=== PATIENT | female | born 1965 | race Caucasian/White ===

== ENCOUNTER 2016-11-08 02:08 | Observation (INO) | payer MEDICAID ==
--- NOTE | 2016-11-08 02:20 | C.PDOC ---
History Of Present Illness A 51 year old female presents to the ED c/o feeling palpitations today. Patient notes being treated for UTI and felt her heart racing. Patient denies chest pain , SOB, fever, chills, trauma, or any other complaints. Time Seen by Provider: 11/08/16 02:20 Chief Complaint (Nursing): Chest Pain History Per: Patient History/Exam Limitations: no limitations Onset/Duration Of Symptoms: Hrs Current Symptoms Are (Timing): Still Present Context: Other Severity: Mild Pain Scale Rating Of: 3 Quality: Dull, Aching Alleviating Factors: None Recent travel outside of the [place]: No Additional History Per: Patient Past Medical History Reviewed: Historical Data, Nursing Documentation, Vital Signs Vital Signs: Last Vital Signs Temp 97.7 F 11/08/16 04:42 Pulse 72 11/08/16 03:37 Resp 13 11/08/16 03:37 BP 147/82 11/08/16 03:37 Pulse Ox 99 11/08/16 03:37 - Medical History PMH: Gastrointestinal Ulcer, HTN, Hypercholesterolemia, Hyperlipidemia, Hyperthyroidism, Hypothyroidism Denies: Chronic Kidney Disease Surgical History: Endoscopy - [facility] Procedures INFLUENZA VACCINATION (09/07/14) VACCINATION NEC (09/07/14) Family History: States: Unknown Family Hx - Social History Hx Tobacco Use: No Hx Alcohol Use: No Hx Substance Use: No - Immunization History Hx Tetanus Toxoid Vaccination: No Hx Influenza Vaccination: No Hx Pneumococcal Vaccination: No Review Of Systems Except As Marked, All Systems Reviewed And Found Negative. Constitutional: Negative for: Fever, Chills, Other (Trauma) Cardiovascular: Positive for: Palpitations. Negative for: Chest Pain Respiratory: Negative for: Shortness of Breath Gastrointestinal: Positive for: Abdominal Pain. Negative for: Nausea, Vomiting Genitourinary: Negative for: Hematuria Musculoskeletal: Negative for: Neck Pain Skin: Negative for: Rash Neurological: Negative for: Weakness Psych: Positive for: Anxiety Physical Exam - Physical Exam Appears: Non-toxic, No Acute Distress Skin: Warm, Dry Head: Atraumatic, Normacephalic Eye(s): bilateral: Normal Inspection Oral Mucosa: Moist Neck: Supple Chest: Symmetrical Cardiovascular: Rhythm Regular Respiratory: No Rales, No Rhonchi, No Wheezing Gastrointestinal/Abdominal: Soft, Tenderness (Mild epigastric tenderness), No Guarding, No Rebound Back: Normal Inspection Extremity: Normal ROM Extremity: Bilateral: Atraumatic, Normal Color And Temperature Neurological/Psych: Oriented x3, Normal Speech, Normal Cognition, No Other (No focal deficit) Gait: Steady ED Course And Treatment - Laboratory Results Result Diagrams: 11/08/16 03:00 11/08/16 03:00 ECG: Interpreted By Me, Viewed By Me ECG Rhythm: Sinus Rhythm (84), Nonspecific Changes Pulse Ox Interpretation: Normal - Radiology CXR: Interpreted by Me, Viewed By Me CXR Interpretation: No: Infiltrates, Fracture, Pnemothorax Disposition Discussed With Dr.: Wiley Cortez Comment: accepted the pt onhis service and took over hte care at 5:24AM Counseled Patient/Family Regarding: Studies Performed, Diagnosis, Need For Followup - Disposition Disposition: HOSPITALIZED Disposition Time: 02:20 Condition: FAIR - POA Present On Arrival: Poor Glycemic Control - Clinical Impression Clinical Impression: Chest pain, Abdominal pain, Palpitation - Scribe Statement The provider has reviewed the documentation as recorded by the Scribe Tracie ford All medical record entries made by the Scribe were at my direction and personally dictated by me. I have reviewed the chart and agree that the record accurately reflects my personal performance of the history, physical exam, medical decision making, and the department course for this patient. I have also personally directed, reviewed, and agree with the discharge instructions and disposition. Decision To Admit - Pt Status Changed To: Hospital Disposition Of: Observation - . Bed Request Type: Telemetry Admitting Physician: Wiley Cortez Patient Diagnosis: Chest pain, Abdominal pain, Palpitation
[2016-11-08 02:26] VITALS: BMI 28.4
[2016-11-08] MEDS ORDERED: Sodium Chloride 0.9% 1,000 ML IV ONE (02:30)
[2016-11-08 03:04] LABS: BASO # 0.1 K/uL (0.0-0.2); BASO % 0.8 % (0.0-2.0); EOS # 0.3 K/uL (0.0-0.7); HEMATOCRIT 37.4 % (34.0-47.0); LYMPH # 2.8 K/uL (1.0-4.3); LYMPH % 43.6 % (20.0-40.0); MEAN CELL VOLUME 81.6 fL (81.0-99.0); MEAN CORPUSCULAR HEMOGLOBIN 26.9 pg (27.0-31.0); MEAN CORPUSCULAR HGB CONC 32.9 g/dL (33.0-37.0); MONO # 0.5 K/uL (0.0-0.8); MONO % 8.5 % (0.0-10.0); NRBC % 0.1 % (0.0-2.0); RED CELL DISTRIBUTION WIDTH 12.7 % (11.5-14.5); WHITE BLOOD COUNT 6.4 K/uL (4.8-10.8)
[2016-11-08 03:21] LABS: CHLORIDE 99 mmol/L (98-107); POTASSIUM 3.8 mmol/L (3.6-5.2); SODIUM 137 mmol/L (132-148)
[2016-11-08 03:22] LABS: INR 1.1
[2016-11-08 03:23] LABS: BILIRUBIN,TOTAL 0.5 mg/dL (0.2-1.3); GFR AFRICAN-AMERICAN > 60
[2016-11-08 03:24] LABS: ALB/GLOB RATIO 1.4 (1.0-2.1); ALKALINE PHOSPHATASE 68 U/L (38-126); ALT/SGPT 31 U/L (9-52); AST/SGOT 21 U/L (14-36); BLOOD UREA NITROGEN 9 mg/dL (7-17); CALCIUM 8.5 mg/dl (8.6-10.4); CARBON DIOXIDE 27 mmol/L (22-30); GLUCOSE,RANDOM 160 mg/dL (65-105); TOTAL PROTEIN 6.6 g/dL (6.3-8.3)
[2016-11-08 03:46] LABS: RBC URINE 5 /hpf (0-3); URINE BACTERIA FEW (<OCC); URINE BILIRUBIN NEGATIVE (NEGATIVE); URINE BLOOD 1+ (NEGATIVE); URINE COLOR Amber (YELLOW); URINE GLUCOSE (UA) 2+ mg/dL (Normal); URINE KETONE NEGATIVE (NEGATIVE); URINE LEUKOCYTE ESTERASE NEG Leu/uL (Negative); URINE PROTEIN NEGATIVE (NEGATIVE); WBC URINE 1 /hpf (0-5)
[2016-11-08] MEDS ORDERED: Enoxaparin 40 mg Syringe SC ONE (05:52)
[2016-11-08] MEDS ORDERED: Enoxaparin 40 mg Syringe ONE (06:15)
--- NOTE | 2016-11-08 09:06 | RAD ---
PROCEDURE: CHEST RADIOGRAPH, 1 VIEW HISTORY: chest pain COMPARISON: None available. FINDINGS: LUNGS: Clear. PLEURA: No pneumothorax or pleural fluid seen. CARDIOVASCULAR: Normal. OSSEOUS STRUCTURES: No significant abnormalities. VISUALIZED UPPER ABDOMEN: Normal. OTHER FINDINGS: None. IMPRESSION: No active disease.
[2016-11-08] MEDS ORDERED: VITAMIN C PO SCH (10:00)
[2016-11-08] MEDS ORDERED: VITAMIN B COMPLEX PO SCH (10:00)
[2016-11-08] MEDS: Vitamin B Complex/Vitamin C Tab PO SCH (11:00)
[2016-11-08] MEDS: methIMAzole 5 MG TAB PO SCH (11:00)
--- NOTE | 2016-11-08 11:53 | CP.PCM.CON ---
History of Present Illness - History of Present Illness History of Present Illness: 51-year-old lady with prior history of hypertension, diabetes, and mixed hyperlipidemia and questionable hypothyroidism. She was admitted through the emergency department with dysuria, felt her heart is racing. There was no arrhythmia on the monitor and early in 2014, it is reported that she had a stress test at [facility] with negative for ischemia results, this time no chest pain or shortness of breath no further palpitation and no loss of consciousness. No fever or high white count, mild dehydration. Follow- up with thyroid-stimulating hormone and echocardiogram. Labs are negative for AK. Review of Systems - Review of Systems Systems not reviewed;Unavailable: Acuity of Condition - Constitutional Constitutional: Anorexia, Weakness - EENT Eyes: absent: Discharge Ears: absent: Ear Discharge Nose/Mouth/Throat: absent: Epistaxis - Cardiovascular Cardiovascular: Palpitations. absent: Acrocyanosis, Chest Pain, Diaphoresis, Dyspnea, Leg Edema, Syncope - Respiratory Respiratory: absent: Cough, Hemoptysis, Dyspnea on Exertion - Gastrointestinal Gastrointestinal: absent: Abdominal Pain, Diarrhea, Dyspepsia, Hematochezia, Vomiting - Genitourinary Genitourinary: Change in Urinary Stream, Dysuria Past Patient History - Tetanus Immunizations Tetanus Immunization: Unknown - Past Medical History & Family History Past Medical History?: Yes - Past Social History Smoking Status: Never Smoked - CARDIAC Hx Hypercholesterolemia: Yes Hx Hypertension: Yes - PULMONARY Hx Respiratory Disorders: No - NEUROLOGICAL Hx Neurological Disorder: Yes Hx Dizziness: Yes - HEENT Hx HEENT Problems: No - RENAL Hx Chronic Kidney Disease: No - ENDOCRINE/METABOLIC Hx Hyperthyroidism: Yes Hx Hypothyroidism: Yes - HEMATOLOGICAL/ONCOLOGICAL Hx Blood Disorders: No - INTEGUMENTARY Hx Dermatological Problems: No - MUSCULOSKELETAL/RHEUMATOLOGICAL Hx Falls: Yes - GASTROINTESTINAL Hx Gastrointestinal Disorders: Yes (COLITIS,HERNIORHAPPHY,HEMORRHOIDS WITH SX) Hx Colitis: Yes Hx Gastroesophageal Reflux: Yes Hx Hemorrhoids: Yes - GENITOURINARY/GYNECOLOGICAL Hx Genitourinary Disorders: Yes (HYSTERECTOMY,MISCARRIAGE X 1) Other/Comment: ovarian cyst - PSYCHIATRIC Hx Substance Use: No - SURGICAL HISTORY Hx Section: Yes Hx Herniorrhaphy: Yes Hx Hysterectomy: Yes Other/Comment: Abdominal cyst removal - ANESTHESIA Hx Anesthesia: Yes Hx Anesthesia Reactions: No Hx Malignant Hyperthermia: No Meds Allergies/Adverse Reactions: Allergies Allergy/AdvReac Type Severity Reaction Status Date / Time nitrofurantoin Allergy Intermediate RASH Verified 11/08/16 05:35 [From Macrobid] sulfamethoxazole Allergy Intermediate ITCHING Verified 04/20/16 21:24 [From Bactrim] trimethoprim [From Bactrim] Allergy Intermediate ITCHING Verified 04/20/16 21:24 - Medications Medications: Current Medications Aspirin (Ecotrin) 81 mg PO DAILY [facility] Last Admin: 11/08/16 10:43 Dose: Not Given Atenolol (Tenormin) 25 mg PO DAILY [facility] Last Admin: 11/08/16 11:00 Dose: 25 mg Famotidine (Pepcid) 20 mg PO DAILY [facility] Last Admin: 11/08/16 11:00 Dose: 20 mg Glimepiride (Amaryl) 4 mg PO DAILY [facility] Last Admin: 11/08/16 11:00 Dose: 4 mg Lisinopril (Zestril) 10 mg PO DAILY [facility] Last Admin: 11/08/16 11:00 Dose: 10 mg Metformin HCl (Glucophage) 1,000 mg PO BIDBS [facility] Last Admin: 11/08/16 11:00 Dose: 1,000 mg Methimazole (Tapazole) 5 mg PO DAILY [facility] Last Admin: 11/08/16 11:00 Dose: 5 mg Ondansetron HCl (Zofran Odt) 8 mg PO TID PRN PRN Reason: Nausea/Vomiting Tramadol HCl (Ultram) 50 mg PO TID [facility] Last Admin: 11/08/16 11:00 Dose: 50 mg Vitamin B Complex/Vitamin C (Berocca) 1 tab PO DAILY [facility] Last Admin: 11/08/16 11:00 Dose: 1 tab Physical Exam - Constitutional Appears: Non-toxic - Head Exam Head Exam: ATRAUMATIC - Eye Exam Eye Exam: EOMI - ENT Exam ENT Exam: Mucous Membranes Moist - Neck Exam Neck exam: Negative for: Lymphadenopathy, Thyromegaly - Respiratory Exam Respiratory Exam: Clear to Auscultation Bilateral. absent: Rales - Cardiovascular Exam Cardiovascular Exam: REGULAR RHYTHM, Systolic Murmur. absent: Gallop - GI/Abdominal Exam GI & Abdominal Exam: Normal Bowel Sounds. absent: Organomegaly - Rectal Exam Rectal Exam: Deferred - Extremities Exam Extremities exam: Positive for: normal capillary refill. Negative for: calf tenderness - Neurological Exam Neurological exam: Alert, Oriented x3 - Psychiatric Exam Psychiatric exam: Anxious - Skin Skin Exam: Dry Results - Vital Signs Recent Vital Signs: Last Vital Signs Temp 98.2 F 11/08/16 08:30 Pulse 74 11/08/16 08:30 Resp 12 11/08/16 08:30 BP 124/77 11/08/16 08:30 Pulse Ox 95 11/08/16 08:30 - Labs Result Diagrams: 11/08/16 03:00 11/08/16 03:00 Labs: Laboratory Results - last 24 hr 11/08/16 11/08/16 11/08/16 05:33 08:32 10:56 POC Glucose (mg/dL) 185 H 176 H Total Creatine Kinase 66 CK-MB (Mass) 0.30 Troponin I, Quant < 0.0120 Assessment & Plan (1) Palpitation Status: Acute Comment: Evaluate thyroid function and echocardiogram (2) Diabetes mellitus Status: Chronic (3) HTN (hypertension) Status: Chronic (4) Hyperlipidemia Status: Chronic
[2016-11-08] MEDS ORDERED: cefTRIAXone IV 1 gm in Dextros 50 ML IVPB ONE (15:14)
--- NOTE | 2016-11-08 23:00 | CP.PCM.HP ---
History of Present Illness - History of Present Illness History of Present Illness: fernandaif complain Lower abdominal pain chest pain HPI 51-year-old lady with prior history of hypertension, diabetes, and mixed hyperlipidemia and questionable hypothyroidism. She was admitted through the emergency department with dysuria, felt her heart is racing. There was no arrhythmia on the monitor and early in 2014, it is reported that she had a stress test at [facility] with negative for ischemia results, this time no chest pain or shortness of breath no further palpitation and no loss of consciousness. No fever or high white count, mild dehydration. Follow- up with thyroid-stimulating hormone and echocardiogram. Labs are negative for ND. Present on Admission - Present on Admission Any Indicators Present on Admission: No Review of Systems - Constitutional Constitutional: Lethargy, Malaise, Weakness - EENT Eyes: absent: As Per HPI, Blind Spots, Blurred Vision, Change in Vision, Decreased Night Vision, Diplopia, Discharge, Dry Eye, Exophthalmos, Floaters, Irritation, Itchy Eyes, Loss of Peripheral Vision, Pain, Photophobia, Requires Corrective Lenses, Sees Flashes, Spots in Vision, Tunnel Vision, Other Visual Disturbances, Loss of Vision, Other Nose/Mouth/Throat: absent: As Per HPI, Epistaxis, Nasal Congestion, Nasal Discharge, Nasal Obstruction, Nasal Trauma, Nose Pain, Post Nasal Drip, Sinus Pain, Sinus Pressure, Bleeding Gums, Change in Voice, Dental Pain, Dry Mouth, Dysphagia, Halitosis, Hoarsness, Lip Swelling, Mouth Lesions, Mouth Pain, Odynophagia, Sore Throat, Throat Swelling, Tongue Swelling, Facial Pain, Neck Pain, Neck Mass, Other - Cardiovascular Cardiovascular: Chest Pain, Palpitations - Gastrointestinal Gastrointestinal: absent: As Per HPI, Abdominal Pain, Belching, Bloating, Change in Bowel Habits, Change in Stool Character, Coffee Ground Emesis, Constipation, Cramping, Diarrhea, Dyspepsia, Dysphagia, Early Satiety, Excessive Flatus, Fecal Incontinence, Heartburn, Hematemesis, Hematochezia, Loose Stools, Melena, Nausea, Odynophagia, Temesmus, Vomiting, Other - Genitourinary Genitourinary: Urinary Frequency - Musculoskeletal Musculoskeletal: Back Pain, Muscle Weakness, Myalgias Past Patient History - Tetanus Immunizations Tetanus Immunization: Unknown - Past Medical History & Family History Past Medical History?: Yes - Past Social History Smoking Status: Never Smoked - CARDIAC Hx Hypercholesterolemia: Yes Hx Hypertension: Yes - PULMONARY Hx Respiratory Disorders: No - NEUROLOGICAL Hx Neurological Disorder: Yes Hx Dizziness: Yes - HEENT Hx HEENT Problems: No - RENAL Hx Chronic Kidney Disease: No - ENDOCRINE/METABOLIC Hx Hyperthyroidism: Yes Hx Hypothyroidism: Yes - HEMATOLOGICAL/ONCOLOGICAL Hx Blood Disorders: No - INTEGUMENTARY Hx Dermatological Problems: No - MUSCULOSKELETAL/RHEUMATOLOGICAL Hx Falls: No - GASTROINTESTINAL Hx Gastrointestinal Disorders: Yes (COLITIS,HERNIORHAPPHY,HEMORRHOIDS WITH SX) Hx Colitis: Yes Hx Gastroesophageal Reflux: Yes Hx Hemorrhoids: Yes - GENITOURINARY/GYNECOLOGICAL Hx Genitourinary Disorders: Yes (HYSTERECTOMY,MISCARRIAGE X 1) Other/Comment: ovarian cyst - PSYCHIATRIC Hx Substance Use: No - SURGICAL HISTORY Hx Section: Yes Hx Herniorrhaphy: Yes Hx Hysterectomy: Yes Other/Comment: Abdominal cyst removal - ANESTHESIA Hx Anesthesia: Yes Hx Anesthesia Reactions: No Hx Malignant Hyperthermia: No Meds Home Medications: Home Medication List Medication Instructions Recorded Confirmed Type Cephalexin [Keflex] 500 mg PO BID 4 Days 11/10/16 Rx Gabapentin [Neurontin] 100 mg PO BID #60 cap 11/10/16 Rx Allergies/Adverse Reactions: Allergies Allergy/AdvReac Type Severity Reaction Status Date / Time nitrofurantoin Allergy Intermediate RASH Verified 11/08/16 05:35 [From Macrobid] sulfamethoxazole Allergy Intermediate ITCHING Verified 04/20/16 21:24 [From Bactrim] trimethoprim [From Bactrim] Allergy Intermediate ITCHING Verified 04/20/16 21:24 Physical Exam - Constitutional Additional comments: elderly female in moderate pain - Head Exam Head Exam: ATRAUMATIC, NORMAL INSPECTION, NORMOCEPHALIC - Eye Exam Eye Exam: EOMI, Normal appearance, PERRL Pupil Exam: NORMAL ACCOMODATION, PERRL - Respiratory Exam Respiratory Exam: Clear to Auscultation Bilateral, NORMAL BREATHING PATTERN - Cardiovascular Exam Cardiovascular Exam: REGULAR RHYTHM - GI/Abdominal Exam GI & Abdominal Exam: Normal Bowel Sounds, Soft. absent: Tenderness Results - Vital Signs Recent Vital Signs: Last Vital Signs Temp 97 F L 11/08/16 18:15 Pulse 76 11/08/16 18:15 Resp 20 11/08/16 18:15 BP 129/80 11/08/16 18:15 Pulse Ox 99 11/08/16 19:23 - Labs Result Diagrams: 11/10/16 10:42 11/10/16 10:42 Labs: Laboratory Results - last 24 hr 11/08/16 11/08/16 11/08/16 05:33 08:32 10:56 POC Glucose (mg/dL) 185 H 176 H Total Creatine Kinase 66 CK-MB (Mass) 0.30 Troponin I, Quant < 0.0120 TSH 3rd Generation 11/08/16 11/08/16 11/08/16 12:27 13:08 13:08 POC Glucose (mg/dL) 284 H Total Creatine Kinase 74 CK-MB (Mass) 0.49 Troponin I, Quant < 0.0120 TSH 3rd Generation 0.33 L 11/08/16 11/08/16 11/08/16 16:26 20:28 21:30 POC Glucose (mg/dL) 82 167 H Total Creatine Kinase 67 CK-MB (Mass) 0.32 Troponin I, Quant < 0.0120 TSH 3rd Generation Assessment & Plan (1) Abdominal pain Status: Resolved (2) Chest pain Status: Acute (3) Palpitation Status: Acute (4) Enteritis Status: Acute
--- NOTE | 2016-11-09 08:05 | CP.PCM.CON ---
<Isa Soto - Last Filed: 11/09/16 08:14> History of Present Illness - History of Present Illness History of Present Illness: Gastroenterology Fellow/PGY4 Consult Note 51 year old female with history of Hypertension, Hyperlipidemia, Diabetes, and Hyperthyroidism presenting with dysuria and heart racing. Patient describes urinary frequency and dysuria associated with chills and palpitations since last leading to ER presentation. Active treatment of UTI. She notes left upper abdomen pain radiating to back for the last four months. Admits to intermittent nausea and vomiting of solids leading to a 20-30 pound weight loss over the last year. Last food vomitus occurred on and has tolerated diet since this time. Denies heartburn, indigestion, diarrhea, constipation, melena, hematochezia, or hematemesis. Admits to use of Advil and Aleve four times a week for abdominal pain relief. She was admitted April 2016 for abdominal pain, dysuria, and hematuria with CT A/P showing no acute abnormalities. Prior EGD and colonoscopy one year ago endorsed to be normal. Family- denies stomach cancer, colon cancer Social- denies tobacco, alcohol, illicit drug use Surgery- hysterectomy Review of Systems - Review of Systems Review of Systems: A 12-point review of systems negative except for as above Past Patient History - Tetanus Immunizations Tetanus Immunization: Unknown - Past Medical History & Family History Past Medical History?: Yes - Past Social History Smoking Status: Never Smoked - CARDIAC Hx Hypercholesterolemia: Yes Hx Hypertension: Yes - PULMONARY Hx Respiratory Disorders: No - NEUROLOGICAL Hx Neurological Disorder: Yes Hx Dizziness: Yes - HEENT Hx HEENT Problems: No - RENAL Hx Chronic Kidney Disease: No - ENDOCRINE/METABOLIC Hx Hyperthyroidism: Yes Hx Hypothyroidism: Yes - HEMATOLOGICAL/ONCOLOGICAL Hx Blood Disorders: No - INTEGUMENTARY Hx Dermatological Problems: No - MUSCULOSKELETAL/RHEUMATOLOGICAL Hx Falls: No - GASTROINTESTINAL Hx Gastrointestinal Disorders: Yes (COLITIS,HERNIORHAPPHY,HEMORRHOIDS WITH SX) Hx Colitis: Yes Hx Gastroesophageal Reflux: Yes Hx Hemorrhoids: Yes - GENITOURINARY/GYNECOLOGICAL Hx Genitourinary Disorders: Yes (HYSTERECTOMY,MISCARRIAGE X 1) Other/Comment: ovarian cyst - PSYCHIATRIC Hx Substance Use: No - SURGICAL HISTORY Hx Section: Yes Hx Herniorrhaphy: Yes Hx Hysterectomy: Yes Other/Comment: Abdominal cyst removal - ANESTHESIA Hx Anesthesia: Yes Hx Anesthesia Reactions: No Hx Malignant Hyperthermia: No Meds Allergies/Adverse Reactions: Allergies Allergy/AdvReac Type Severity Reaction Status Date / Time nitrofurantoin Allergy Intermediate RASH Verified 11/08/16 05:35 [From Macrobid] sulfamethoxazole Allergy Intermediate ITCHING Verified 04/20/16 21:24 [From Bactrim] trimethoprim [From Bactrim] Allergy Intermediate ITCHING Verified 04/20/16 21:24 - Medications Medications: Current Medications Aspirin (Ecotrin) 81 mg PO DAILY [facility] Last Admin: 11/08/16 10:43 Dose: Not Given Atenolol (Tenormin) 25 mg PO DAILY [facility] Last Admin: 11/08/16 11:00 Dose: 25 mg Famotidine (Pepcid) 20 mg PO DAILY [facility] Last Admin: 11/08/16 11:00 Dose: 20 mg Glimepiride (Amaryl) 4 mg PO DAILY [facility] Last Admin: 11/08/16 11:00 Dose: 4 mg Ceftriaxone Sodium 1 gm/ (Sodium Chloride) 100 mls @ 100 mls/hr IVPB DAILY@ 1500 [facility] Last Admin: 11/08/16 15:16 Dose: 100 mls/hr Lisinopril (Zestril) 10 mg PO DAILY [facility] Last Admin: 11/08/16 11:00 Dose: 10 mg Metformin HCl (Glucophage) 1,000 mg PO BIDBS [facility] Last Admin: 11/08/16 16:38 Dose: Not Given Methimazole (Tapazole) 5 mg PO DAILY [facility] Last Admin: 11/08/16 11:00 Dose: 5 mg Ondansetron HCl (Zofran Odt) 8 mg PO TID PRN PRN Reason: Nausea/Vomiting Phenazopyridine HCl (Pyridium) 200 mg PO TIDPC [facility] Stop: 11/10/16 18:01 Last Admin: 11/08/16 18:06 Dose: 200 mg Tramadol HCl (Ultram) 50 mg PO TID [facility] Last Admin: 11/08/16 20:36 Dose: 50 mg Vitamin B Complex/Vitamin C (Berocca) 1 tab PO DAILY [facility] Last Admin: 11/08/16 11:00 Dose: 1 tab Physical Exam - Constitutional Appears: Non-toxic, No Acute Distress - Head Exam Head Exam: ATRAUMATIC, NORMOCEPHALIC - Eye Exam Eye Exam: EOMI, PERRL Pupil Exam: PERRL. absent: Miosis, Mydriatic - ENT Exam ENT Exam: Mucous Membranes Moist, Normal Oropharynx - Neck Exam Neck exam: Positive for: Full Rom, Normal Inspection - Respiratory Exam Respiratory Exam: Clear to Auscultation Bilateral. absent: Rales, Rhonchi, Wheezes - Cardiovascular Exam Cardiovascular Exam: RRR, +S1, +S2. absent: Gallop, Rubs - GI/Abdominal Exam GI & Abdominal Exam: Normal Bowel Sounds, Soft, Tenderness. absent: Distended, Firm, Guarding, Organomegaly, Rebound, Rigid Additional comments: LUQ tenderness - Extremities Exam Extremities exam: Positive for: full ROM. Negative for: pedal edema - Neurological Exam Neurological exam: Alert - Psychiatric Exam Psychiatric exam: Normal Affect, Normal Mood - Skin Skin Exam: Dry, Intact, Normal Color, Warm Results - Vital Signs Recent Vital Signs: Last Vital Signs Temp 98.3 F 11/09/16 07:58 Pulse 86 11/09/16 07:58 Resp 19 11/09/16 07:58 BP 169/78 H 11/09/16 07:58 Pulse Ox 100 11/09/16 07:58 - Labs Result Diagrams: 11/08/16 03:00 11/08/16 03:00 Labs: Laboratory Results - last 24 hr 11/08/16 11/08/16 11/08/16 08:32 10:56 12:27 POC Glucose (mg/dL) 176 H 284 H Total Creatine Kinase 66 CK-MB (Mass) 0.30 Troponin I, Quant < 0.0120 TSH 3rd Generation 11/08/16 11/08/16 11/08/16 13:08 13:08 16:26 POC Glucose (mg/dL) 82 Total Creatine Kinase 74 CK-MB (Mass) 0.49 Troponin I, Quant < 0.0120 TSH 3rd Generation 0.33 L 11/08/16 11/08/16 11/09/16 20:28 21:30 06:09 POC Glucose (mg/dL) 167 H 123 H Total Creatine Kinase 67 CK-MB (Mass) 0.32 Troponin I, Quant < 0.0120 TSH 3rd Generation Assessment & Plan - Assessment and Plan (Free Text) Assessment: 51 year old female with history of Hypertension, Hyperlipidemia, Diabetes, and Hyperthyroidism presenting with dysuria and palpitations. GI consultation for abdominal pain. Prior EGD and colonoscopy one year ago endorsed to be normal. Plan: DDx: gastritis, PUD, gastroenteritis, constipation >ordered pantoprazole >order CT A/P PO contrast to evaluate for visceral pathology >CT A/P 04/2016-diverticulosis, constipation >UTI: on Ceftriaxone >endorsed EGD/colonoscopy 2015 >obtain records from [facility] [place] >cardiology following- ECHO, follow recommendations >further recommendations based on clinical course <Gregorio Elizabeth - Last Filed: 11/09/16 08:50> Meds - Medications Medications: Current Medications Aspirin (Ecotrin) 81 mg PO DAILY [facility] Last Admin: 11/08/16 10:43 Dose: Not Given Atenolol (Tenormin) 25 mg PO DAILY [facility] Last Admin: 11/08/16 11:00 Dose: 25 mg Glimepiride (Amaryl) 4 mg PO DAILY [facility] Last Admin: 11/08/16 11:00 Dose: 4 mg Ceftriaxone Sodium 1 gm/ (Sodium Chloride) 100 mls @ 100 mls/hr IVPB DAILY@ 1500 [facility] Last Admin: 11/08/16 15:16 Dose: 100 mls/hr Lisinopril (Zestril) 10 mg PO DAILY [facility] Last Admin: 11/08/16 11:00 Dose: 10 mg Metformin HCl (Glucophage) 1,000 mg PO BIDBS [facility] Last Admin: 11/09/16 08:34 Dose: 1,000 mg Methimazole (Tapazole) 5 mg PO DAILY [facility] Last Admin: 11/08/16 11:00 Dose: 5 mg Ondansetron HCl (Zofran Odt) 8 mg PO TID PRN PRN Reason: Nausea/Vomiting Pantoprazole Sodium (Protonix Ec Tab) 40 mg PO ACB [facility] Phenazopyridine HCl (Pyridium) 200 mg PO TIDPC [facility] Stop: 11/10/16 18:01 Last Admin: 11/09/16 08:34 Dose: 200 mg Tramadol HCl (Ultram) 50 mg PO TID [facility] Last Admin: 11/08/16 20:36 Dose: 50 mg Vitamin B Complex/Vitamin C (Berocca) 1 tab PO DAILY [facility] Last Admin: 11/08/16 11:00 Dose: 1 tab Results - Vital Signs Recent Vital Signs: Last Vital Signs Temp 98.3 F 11/09/16 07:58 Pulse 86 11/09/16 07:58 Resp 19 11/09/16 07:58 BP 169/78 H 11/09/16 07:58 Pulse Ox 100 11/09/16 07:58 - Labs Result Diagrams: 11/08/16 03:00 11/08/16 03:00 Labs: Laboratory Results - last 24 hr 11/08/16 11/08/16 11/08/16 08:32 10:56 12:27 POC Glucose (mg/dL) 176 H 284 H Total Creatine Kinase 66 CK-MB (Mass) 0.30 Troponin I, Quant < 0.0120 TSH 3rd Generation Hepatitis A IgM Ab Hep Bs Antigen Hep B Core IgM Ab Hepatitis C Antibody 11/08/16 11/08/16 11/08/16 13:08 13:08 16:26 POC Glucose (mg/dL) 82 Total Creatine Kinase 74 CK-MB (Mass) 0.49 Troponin I, Quant < 0.0120 TSH 3rd Generation 0.33 L Hepatitis A IgM Ab Hep Bs Antigen Hep B Core IgM Ab Hepatitis C Antibody 11/08/16 11/08/16 11/09/16 20:28 21:30 06:09 POC Glucose (mg/dL) 167 H 123 H Total Creatine Kinase 67 CK-MB (Mass) 0.32 Troponin I, Quant < 0.0120 TSH 3rd Generation Hepatitis A IgM Ab Hep Bs Antigen Hep B Core IgM Ab Hepatitis C Antibody 11/09/16 06:28 POC Glucose (mg/dL) Total Creatine Kinase CK-MB (Mass) Troponin I, Quant TSH 3rd Generation Hepatitis A IgM Ab Negative Hep Bs Antigen Negative Hep B Core IgM Ab Negative Hepatitis C Antibody Negative Attending/Attestation - Attestation I have personally seen and examined this patient.: Yes I have fully participated in the care of the patient.: Yes I have reviewed all pertinent clinical information: Yes Notes (Text): 11/09/16 08:41 I have seen and examined patient with GI fellow. Agree with above documentation with the following additions. In brief, this is a 51 year old female with history of DM, HTN, hyperthyroidism who presented to hospital with complaint of dysuria and palpitations. GI consulted for evaluation of abdominal pain which has been present for the past 4 months. She describes a progressive LUQ pain, 5/10 intensity which is typically worse post prandial and intermittently radiates to back. She also endorses intermittent nausea and non- bloody emesis. She is typically constipated and has a bowel movement every other day. She admits to NSAID use for pain relief 4-5 times per week and claims to have occassional dark stool. She also endorses a weight loss of nearly 20 pounds over the past one year. She had an EGD/colonoscopy 1 year ago at outside facility which was normal as per patient. DM / HTN Hyperthyroidism Abdominal pain, constipation. CT imaging from April 2016 reviewed by me, showing no acute GI pathology UTI - Diet as tolerated - Continue with antibiotic therapy, awaiting urine culture results - Continue with PPI therapy - Given ongoing weight loss and abdominal pain, would repeat CT imaging of abdomen/pelvis for further evaluation - Obtain prior endoscopic reports - Will continue to monitor patient clinical course
[2016-11-09] MEDS: methIMAzole 5 MG TAB PO SCH (09:12)
[2016-11-09] MEDS: Pantoprazole 40 mg EC Tab PO SCH (09:13)
[2016-11-09] MEDS: Vitamin B Complex/Vitamin C Tab PO SCH (09:15)
[2016-11-09] MEDS ORDERED: Iohexol 240 (50 ml) PO ONE ×2 (10:45→11:00)
--- NOTE | 2016-11-09 11:41 | CP.PCM.PN ---
Subjective - Date & Time of Evaluation Date of Evaluation: 11/09/16 Time of Evaluation: 13:00 - Subjective Subjective: Echo normal left ventricular contractility, no pericardial disease and no aortic stenosis. Unlikely arrhythmia. Negative blood culture negative enzymes for WI. TSH is mildly decreased suggest hyperthyroidism, follow-up with GI workup Objective - Vital Signs/Intake and Output Vital Signs (last 24 hours): Temp Pulse Resp BP Pulse Ox 98.3 F 80 19 153/89 H 100 11/09/16 07:58 11/09/16 09:10 11/09/16 07:58 11/09/16 09:10 11/09/16 07:58 - Medications Medications: Current Medications Acetaminophen (Tylenol 325mg Tab) 650 mg PO Q6 PRN PRN Reason: Headache Aspirin (Ecotrin) 81 mg PO HS [facility] Atenolol (Tenormin) 25 mg PO DAILY [facility] Last Admin: 11/09/16 09:15 Dose: 25 mg Gabapentin (Neurontin) 100 mg PO BID [facility] Glimepiride (Amaryl) 4 mg PO 2000 [facility] Ceftriaxone Sodium 1 gm/ (Sodium Chloride) 100 mls @ 100 mls/hr IVPB DAILY@ 1500 [facility] Last Admin: 11/08/16 15:16 Dose: 100 mls/hr Lisinopril (Zestril) 10 mg PO DAILY [facility] Last Admin: 11/09/16 09:15 Dose: 10 mg Metformin HCl (Glucophage) 1,000 mg PO BIDBS [facility] Last Admin: 11/09/16 08:34 Dose: 1,000 mg Methimazole (Tapazole) 5 mg PO DAILY [facility] Last Admin: 11/09/16 09:12 Dose: 5 mg Ondansetron HCl (Zofran Odt) 8 mg PO TID PRN PRN Reason: Nausea/Vomiting Pantoprazole Sodium (Protonix Ec Tab) 40 mg PO ACB [facility] Last Admin: 11/09/16 09:13 Dose: 40 mg Phenazopyridine HCl (Pyridium) 200 mg PO TIDPC [facility] Stop: 11/10/16 18:01 Last Admin: 11/09/16 08:34 Dose: 200 mg Tramadol HCl (Ultram) 50 mg PO TID [facility] Last Admin: 11/09/16 09:13 Dose: 50 mg Vitamin B Complex/Vitamin C (Berocca) 1 tab PO DAILY [facility] Last Admin: 11/09/16 09:15 Dose: 1 tab - Labs Labs: PT 12.5 SECONDS (9.7-12.2) H 11/08/16 03:00 INR 1.1 11/08/16 03:00 APTT 29 SECONDS (21-34) 11/08/16 03:00 - Constitutional Appears: Non-toxic - Head Exam Head Exam: ATRAUMATIC - Eye Exam Eye Exam: EOMI - ENT Exam ENT Exam: Mucous Membranes Moist - Neck Exam Neck Exam: absent: Lymphadenopathy, Thyromegaly - Respiratory Exam Respiratory Exam: Clear to Ausculation Bilateral. absent: Rales - Cardiovascular Exam Cardiovascular Exam: REGULAR RHYTHM, Murmur - GI/Abdominal Exam GI & Abdominal Exam: Normal Bowel Sounds. absent: Organomegaly - Rectal Exam Rectal Exam: Deferred - Extremities Exam Extremities Exam: Normal Capillary Refill. absent: Calf Tenderness - Neurological Exam Neurological Exam: Alert, Oriented x3 - Psychiatric Exam Psychiatric exam: Normal Mood - Skin Skin Exam: Dry Assessment and Plan (1) Palpitation Status: Acute (2) Diabetes mellitus Status: Chronic (3) HTN (hypertension) Status: Chronic (4) Hyperlipidemia Status: Chronic
--- NOTE | 2016-11-09 14:58 | CT ---
PROCEDURE: CT Abdomen and Pelvis without IV contrast. HISTORY: abdominal pain COMPARISON: None available TECHNIQUE: Contiguous axial images of the abdomen and pelvis. Oral contrast was administered. No IV contrast given. Coronal and Sagittal reformats generated and reviewed. Radiation dose: Total exam DLP = 634.35 mGy-cm. This CT exam was performed using one or more of the following dose reduction techniques: Automated exposure control, adjustment of the mA and/or kV according to patient size, and/or use of iterative reconstruction technique. FINDINGS: There is limited evaluation of the solid organs without the administration of IV contrast. LOWER THORAX: No visible consolidation, pleural effusion, or pneumothorax. Small hiatal hernia/distal esophageal wall thickening. LIVER: Unremarkable unenhanced appearance. GALLBLADDER AND BILE DUCTS: Unremarkable unenhanced appearance. PANCREAS: Unremarkable unenhanced appearance. SPLEEN: Unremarkable unenhanced appearance. ADRENALS: Unremarkable unenhanced appearance. KIDNEYS AND URETERS: No hydronephrosis or obstructing renal calculus. Indeterminate 10 mm left renal hypodense lesion, upper pole. Indeterminate 2.1 cm right upper pole renal hypodense lesion. BLADDER: The urinary bladder appears unremarkable. REPRODUCTIVE: Uterus is absent, presumably due to hysterectomy. APPENDIX: The appendix appears within normal limits of caliber. No secondary signs of acute appendicitis. BOWEL: The stomach is nondistended. The bowel loops appear within normal limits of caliber without evidence of intestinal obstruction. Diverticulosis without CT evidence of acute diverticulitis. Moderate constipation. PERITONEUM: No significant free fluid. No definite free air. LYMPH NODES: No bulky lymphadenopathy identified. VASCULATURE: Atherosclerotic calcifications. No aortic aneurysm. BONES: Osseous demineralization. Degenerative changes. Probable 2 cm hemangioma, L2 vertebral body. OTHER FINDINGS: None. IMPRESSION: Indeterminate 10 mm left renal hypodense lesion, upper pole. Indeterminate 2.1 cm right upper pole renal hypodense lesion. Recommend renal ultrasound for further characterization. Diverticulosis without CT evidence of acute diverticulitis. Moderate constipation. Additional findings as above.
[2016-11-09 15:23] VITALS: RESP 20
[2016-11-10] MEDS: Pantoprazole 40 mg EC Tab PO SCH (06:30)
--- NOTE | 2016-11-10 09:16 | CP.PCM.PN ---
<Isa Soto - Last Filed: 11/10/16 09:24> Subjective - Date & Time of Evaluation Date of Evaluation: 11/10/16 Time of Evaluation: 09:13 - Subjective Subjective: Gastroenterology Fellow/PGY4 Progress Note Patient notes improvement in abdominal pain and nausea. Tolerated regular diet. Vomited small amount of water yesterday. Notes diarrhea after drinking contrast for CT A/P yesterday. A 12-point review of systems negative except for as above. Objective - Vital Signs/Intake and Output Vital Signs (last 24 hours): Temp Pulse Resp BP Pulse Ox 98.8 F 74 20 94/62 L 94 L 11/10/16 07:00 11/10/16 07:00 11/10/16 07:00 11/10/16 07:00 11/10/16 07:00 - Medications Medications: Current Medications Acetaminophen (Tylenol 325mg Tab) 650 mg PO Q6 PRN PRN Reason: Headache Last Admin: 11/09/16 18:44 Dose: 650 mg Alprazolam (Xanax) 0.25 mg PO TID PRN PRN Reason: Anxiety Stop: 11/16/16 19:44 Last Admin: 11/09/16 21:32 Dose: 0.25 mg Aspirin (Ecotrin) 81 mg PO HS [facility] Last Admin: 11/09/16 21:32 Dose: 81 mg Atenolol (Tenormin) 25 mg PO DAILY [facility] Last Admin: 11/09/16 09:15 Dose: 25 mg Docusate Sodium (Colace) 100 mg PO BID [facility] Last Admin: 11/09/16 18:47 Dose: Not Given Gabapentin (Neurontin) 100 mg PO BID [facility] Last Admin: 11/09/16 19:17 Dose: 100 mg Glimepiride (Amaryl) 4 mg PO 1999 [facility] Last Admin: 11/09/16 22:57 Dose: 4 mg Ceftriaxone Sodium 1 gm/ (Sodium Chloride) 100 mls @ 100 mls/hr IVPB DAILY@ 1500 [facility] Last Admin: 11/09/16 14:31 Dose: 100 mls/hr Lisinopril (Zestril) 10 mg PO DAILY [facility] Last Admin: 11/09/16 09:15 Dose: 10 mg Metformin HCl (Glucophage) 1,000 mg PO BIDBS [facility] Last Admin: 11/09/16 19:18 Dose: 1,000 mg Methimazole (Tapazole) 5 mg PO DAILY [facility] Last Admin: 11/09/16 09:12 Dose: 5 mg Ondansetron HCl (Zofran Odt) 8 mg PO TID PRN PRN Reason: Nausea/Vomiting Ondansetron HCl (Zofran Inj) 4 mg IVP Q6 PRN PRN Reason: Nausea/Vomiting Last Admin: 11/09/16 17:57 Dose: 4 mg Pantoprazole Sodium (Protonix Ec Tab) 40 mg PO ACB [facility] Last Admin: 11/10/16 06:30 Dose: 40 mg Phenazopyridine HCl (Pyridium) 200 mg PO TIDPC [facility] Stop: 11/10/16 18:01 Last Admin: 11/09/16 19:17 Dose: 200 mg Tramadol HCl (Ultram) 50 mg PO TID [facility] Last Admin: 11/09/16 19:13 Dose: Not Given Vitamin B Complex/Vitamin C (Berocca) 1 tab PO DAILY [facility] Last Admin: 11/09/16 09:15 Dose: 1 tab - Labs Labs: PT 12.5 SECONDS (9.7-12.2) H 11/08/16 03:00 INR 1.1 11/08/16 03:00 APTT 29 SECONDS (21-34) 11/08/16 03:00 - Constitutional Appears: Non-toxic, No Acute Distress - Head Exam Head Exam: ATRAUMATIC, NORMOCEPHALIC - Eye Exam Eye Exam: EOMI, PERRL Pupil Exam: PERRL. absent: Miosis, Mydriatic - ENT Exam ENT Exam: Mucous Membranes Moist, Normal Oropharynx - Neck Exam Neck Exam: Full ROM, Normal Inspection - Respiratory Exam Respiratory Exam: Clear to Ausculation Bilateral. absent: Rales, Rhonchi, Wheezes - Cardiovascular Exam Cardiovascular Exam: RRR, +S1, +S2. absent: Gallop, Rubs - GI/Abdominal Exam GI & Abdominal Exam: Soft, Normal Bowel Sounds. absent: Distended, Firm, Guarding, Rigid, Tenderness, Organomegaly, Rebound - Extremities Exam Extremities Exam: Full ROM. absent: Pedal Edema - Neurological Exam Neurological Exam: Alert, Awake - Psychiatric Exam Psychiatric exam: Normal Affect, Normal Mood - Skin Skin Exam: Dry, Intact, Normal Color, Warm Assessment and Plan - Assessment and Plan (Free Text) Assessment: 51 year old female with history of Hypertension, Hyperlipidemia, Diabetes, and Hyperthyroidism presenting with dysuria and palpitations. GI consultation for abdominal pain. Prior EGD and colonoscopy one year ago endorsed to be normal. Plan: >DDx: Dyspepsia, gastroparesis, constipation >dyspepsia resolved >continue pantoprazole PO ACB >CT A/P PO contrast- constipation >Miralax daily >ordered CBC, CMP, A1c >[place] [place]request received, awaiting fax >cardiology following- ECHO, follow recommendations >will follow clinical course <Sheldon Gutierrez - Last Filed: 11/10/16 10:50> Objective - Vital Signs/Intake and Output Vital Signs (last 24 hours): Temp Pulse Resp BP Pulse Ox 98.8 F 74 20 132/82 94 L 11/10/16 07:00 11/10/16 09:37 11/10/16 07:00 11/10/16 09:37 11/10/16 07:00 - Medications Medications: Current Medications Acetaminophen (Tylenol 325mg Tab) 650 mg PO Q6 PRN PRN Reason: Headache Last Admin: 11/09/16 18:44 Dose: 650 mg Alprazolam (Xanax) 0.25 mg PO TID PRN PRN Reason: Anxiety Stop: 11/16/16 19:44 Last Admin: 11/09/16 21:32 Dose: 0.25 mg Aspirin (Ecotrin) 81 mg PO HS [facility] Last Admin: 11/09/16 21:32 Dose: 81 mg Atenolol (Tenormin) 25 mg PO DAILY [facility] Last Admin: 11/10/16 10:07 Dose: 25 mg Docusate Sodium (Colace) 100 mg PO BID [facility] Last Admin: 11/10/16 09:19 Dose: 100 mg Gabapentin (Neurontin) 100 mg PO BID [facility] Last Admin: 11/10/16 09:19 Dose: 100 mg Glimepiride (Amaryl) 4 mg PO 1999 [facility] Last Admin: 11/09/16 22:57 Dose: 4 mg Ceftriaxone Sodium 1 gm/ (Sodium Chloride) 100 mls @ 100 mls/hr IVPB DAILY@ 1500 [facility] Last Admin: 11/09/16 14:31 Dose: 100 mls/hr Lisinopril (Zestril) 10 mg PO DAILY [facility] Last Admin: 11/09/16 09:15 Dose: 10 mg Metformin HCl (Glucophage) 1,000 mg PO BIDBS [facility] Last Admin: 11/09/16 19:18 Dose: 1,000 mg Methimazole (Tapazole) 5 mg PO DAILY [facility] Last Admin: 11/10/16 09:19 Dose: 5 mg Ondansetron HCl (Zofran Odt) 8 mg PO TID PRN PRN Reason: Nausea/Vomiting Ondansetron HCl (Zofran Inj) 4 mg IVP Q6 PRN PRN Reason: Nausea/Vomiting Last Admin: 11/09/16 17:57 Dose: 4 mg Pantoprazole Sodium (Protonix Ec Tab) 40 mg PO ACB [facility] Last Admin: 11/10/16 06:30 Dose: 40 mg Phenazopyridine HCl (Pyridium) 200 mg PO TIDPC [facility] Stop: 11/10/16 18:01 Last Admin: 11/10/16 09:19 Dose: 200 mg Polyethylene Glycol (Miralax) 17 gm PO DAILY [facility] Last Admin: 11/10/16 10:07 Dose: 17 gm Tramadol HCl (Ultram) 50 mg PO TID [facility] Last Admin: 11/09/16 19:13 Dose: Not Given Vitamin B Complex/Vitamin C (Berocca) 1 tab PO DAILY [facility] Last Admin: 11/10/16 09:22 Dose: 1 tab - Labs Labs: PT 12.5 SECONDS (9.7-12.2) H 11/08/16 03:00 INR 1.1 11/08/16 03:00 APTT 29 SECONDS (21-34) 11/08/16 03:00 Attending/Attestation - Attestation I have personally seen and examined this patient.: Yes I have fully participated in the care of the patient.: Yes I have reviewed all pertinent clinical information, including history, physical exam and plan: Yes Notes (Text): Patient seen and examined with GI fellow. Agree with her note as documented above with the following additions/exceptions. This is a 51 year old female with history of HTN, HL, DM, hyperthyroidism, recurrent UTI who is admitted with dysuria (positive UA, culture pending). We are consulted for epigastric pain, which is now resolved. She has mild nausea, but is tolerating diet. CT yesterday without any acute pathology. We are awaiting her prior endoscopy records, but would continue supportive care, PPI therapy, antiemetic as needed. Continue antibiotics as per primary medical team. Continue bowel regimen. No further inpatient GI evaluation planned at this time given improvement in her symptoms. Please call with any questions/concerns. 11/10/16 10:48
[2016-11-10] MEDS: methIMAzole 5 MG TAB PO SCH (09:19)
[2016-11-10] MEDS: Vitamin B Complex/Vitamin C Tab PO SCH (09:22)
[2016-11-10] MEDS ORDERED: POLYETHYLENE GLYCOL 3350 17 GM/Dose PACKET PO SCH (10:00)
[2016-11-10 10:58] LABS: BASO # 0.1 K/uL (0.0-0.2); BASO % 0.7 % (0.0-2.0); EOS # 0.3 K/uL (0.0-0.7); EOS % 3.7 % (0.0-4.0); HEMATOCRIT 37.2 % (34.0-47.0); LYMPH # 2.4 K/uL (1.0-4.3); LYMPH % 30.4 % (20.0-40.0); MEAN CELL VOLUME 82.5 fL (81.0-99.0); MEAN CORPUSCULAR HEMOGLOBIN 26.7 pg (27.0-31.0); MEAN CORPUSCULAR HGB CONC 32.4 g/dL (33.0-37.0); MEAN PLATELET VOLUME 8.5 fL (7.2-11.7); MONO # 0.6 K/uL (0.0-0.8); MONO % 7.3 % (0.0-10.0); NRBC % 0.1 % (0.0-2.0); RED CELL DISTRIBUTION WIDTH 12.7 % (11.5-14.5); WHITE BLOOD COUNT 7.9 K/uL (4.8-10.8)
[2016-11-10 11:09] LABS: CHLORIDE 100 mmol/L (98-107); POTASSIUM 4.3 mmol/L (3.6-5.2); SODIUM 139 mmol/L (132-148)
[2016-11-10 11:11] LABS: GFR AFRICAN-AMERICAN > 60
--- NOTE | 2016-11-10 11:11 | US ---
PROCEDURE: Ultrasound of the Kidneys HISTORY: hypodense lesion in CT COMPARISON: CT abdomen and pelvis without IV contrast performed 11/09/16 TECHNIQUE: Sonogram of the kidneys. FINDINGS: Examination limited by bowel gas. RIGHT KIDNEY: Measures: 9.9 x 4.5 x 5.0 cm. 3.8 x 2.3 x 3.1 cm anechoic avascular lesion in the upper pole compatible with a cyst. 0.9 x 0.6 x 0.2 cm anechoic avascular lesion in the right lower pole compatible with a cyst. No hydronephrosis or obstructing calculus identified. LEFT KIDNEY: Measures: 12.2 x 5.4 x 4.3 cm. 1.6 x 1.5 x 1.6 cm anechoic avascular lesion within the left upper/mid pole compatible with a cyst. OTHER FINDINGS: None. IMPRESSION: Examination limited by bowel gas. Bilateral renal cysts.
[2016-11-10 11:12] LABS: ALB/GLOB RATIO 1.4 (1.0-2.1); ALKALINE PHOSPHATASE 61 U/L (38-126); ALT/SGPT 23 U/L (9-52); AST/SGOT 21 U/L (14-36); BILIRUBIN,TOTAL 0.5 mg/dL (0.2-1.3); BLOOD UREA NITROGEN 10 mg/dL (7-17); CARBON DIOXIDE 29 mmol/L (22-30); GLUCOSE,RANDOM 200 mg/dL (65-105); TOTAL PROTEIN 6.4 g/dL (6.3-8.3)
[2016-11-10 11:13] LABS: CALCIUM 8.9 mg/dl (8.6-10.4)
--- NOTE | 2016-11-10 11:58 | CARD ---
APPROVED REPORT EKG Measurement Heart [id number] <Conclusion> Normal sinus rhythm Normal ECG
--- NOTE | 2016-11-10 11:59 | CARD ---
APPROVED REPORT EKG Measurement Heart [id number] AL [id number] <Conclusion> Normal sinus rhythm Normal ECG
--- NOTE | 2016-11-10 11:59 | CARD ---
APPROVED REPORT EKG Measurement Heart [id number] MS [id number] <Conclusion> Normal sinus rhythm Normal ECG
--- NOTE | 2016-11-10 12:49 | CARD ---
APPROVED REPORT EXAM: Two-dimensional and M-mode echocardiogram with Doppler and color Doppler. Other Information Quality : GoodRhythm : NSR INDICATION Chest Pain Palpitations RISK FACTORS Hypertension Hyperlipidemia Diabetes M-Mode DIMENSIONS RVDd1.58 (2.1-3.2cm)Left Atrium (MM)3.10 (2.5-4.0cm) IVSd0.79 (0.7-1.1cm)Aortic Root2.85 (2.2-3.7cm) LVDd4.89 (4.0-5.6cm)Aortic Cusp Exc.1.85 (1.5-2.0cm) PWd0.67 (0.7-1.1cm)FS (%) 47 % LVDs2.61 (2.0-3.8cm)LVEF (%)78 (>50%) Mitral Valve MV E Vzwarhqa54.2cm/sMV A Xacvbalu54.7cm/sE/A ratio1.1 TDI E/Lateral E'0.0E/Medial E'0.0 Tricuspid Valve TR Peak [id number]/sTR Peak Gr.[id number] LEFT VENTRICLE The left ventricle is normal size. There is normal left ventricular wall thickness. The left ventricular function is normal. The left ventricular ejection fraction is within the normal range. There is normal LV segmental wall motion. The left ventricular diastolic function is normal. No left ventricle thrombus noted on this study. There is no ventricular septal defect visualized. There is no left ventricular aneurysm. There is no mass noted in the left ventricle. RIGHT VENTRICLE The right ventricle is normal size. There is normal right ventricular wall thickness. The right ventricular systolic function is normal. ATRIA The left atrium size is normal. The right atrium size is normal. AORTIC VALVE The aortic valve is normal in structure. No aortic regurgitation is present. There is no aortic valvular stenosis. There is no aortic valvular vegetation. MITRAL VALVE The mitral valve is normal in structure. There is no mitral valve stenosis. There is no mitral valve regurgitation noted. TRICUSPID VALVE The tricuspid valve is normal in structure. There is no tricuspid valve regurgitation noted. PULMONIC VALVE The pulmonary valve is normal in structure. There is trace pulmonic valvular regurgitation. GREAT VESSELS The aortic root is normal in size. The ascending aorta is normal in size. The pulmonary artery is normal. The IVC is normal in size and collapses >50% with inspiration. PERICARDIAL EFFUSION There is no pericardial effusion. <Conclusion> NORMAL STUDY.
[2016-11-10 15:59] VITALS: BP 127/78; PULSE 73; TEMP 98.2; O2SAT 95
--- NOTE | 2016-11-10 16:45 | CP.PCM.PN ---
Subjective - Date & Time of Evaluation Date of Evaluation: 11/10/16 Time of Evaluation: 11:15 - Subjective Subjective: Pt seen and examined today, states abdominal pain and dysuria resolved , denies any N/V since yesterday, tolerating diet , denies any chest pain, palpitations, dizziness . No overnight events reported by RN Objective - Vital Signs/Intake and Output Vital Signs (last 24 hours): Temp Pulse Resp BP Pulse Ox 98.2 F 73 20 127/78 95 11/10/16 15:58 11/10/16 15:58 11/10/16 15:58 11/10/16 15:58 11/10/16 15:58 Intake and Output: 11/10/16 11/10/16 06:59 18:59 Intake Total 560 Balance 560 - Medications Medications: Current Medications Acetaminophen (Tylenol 325mg Tab) 650 mg PO Q6 PRN PRN Reason: Headache Last Admin: 11/09/16 18:44 Dose: 650 mg Alprazolam (Xanax) 0.25 mg PO TID PRN PRN Reason: Anxiety Stop: 11/16/16 19:44 Last Admin: 11/09/16 21:32 Dose: 0.25 mg Aspirin (Ecotrin) 81 mg PO [facility] Last Admin: 11/09/16 21:32 Dose: 81 mg Atenolol (Tenormin) 25 mg PO DAILY [facility] Last Admin: 11/10/16 10:07 Dose: 25 mg Docusate Sodium (Colace) 100 mg PO BID [facility] Last Admin: 11/10/16 09:19 Dose: 100 mg Gabapentin (Neurontin) 100 mg PO BID [facility] Last Admin: 11/10/16 09:19 Dose: 100 mg Glimepiride (Amaryl) 4 mg PO 1999 [facility] Last Admin: 11/09/16 22:57 Dose: 4 mg Ceftriaxone Sodium 1 gm/ (Sodium Chloride) 100 mls @ 100 mls/hr IVPB DAILY@ 1500 [facility] Last Admin: 11/10/16 14:18 Dose: 100 mls/hr Lisinopril (Zestril) 10 mg PO DAILY [facility] Last Admin: 11/10/16 11:00 Dose: 10 mg Metformin HCl (Glucophage) 1,000 mg PO BIDBS [facility] Last Admin: 11/10/16 08:15 Dose: Not Given Methimazole (Tapazole) 5 mg PO DAILY [facility] Last Admin: 11/10/16 09:19 Dose: 5 mg Ondansetron HCl (Zofran Odt) 8 mg PO TID PRN PRN Reason: Nausea/Vomiting Ondansetron HCl (Zofran Inj) 4 mg IVP Q6 PRN PRN Reason: Nausea/Vomiting Last Admin: 11/09/16 17:57 Dose: 4 mg Pantoprazole Sodium (Protonix Ec Tab) 40 mg PO ACB [facility] Last Admin: 11/10/16 06:30 Dose: 40 mg Phenazopyridine HCl (Pyridium) 200 mg PO TIDPC [facility] Stop: 11/10/16 18:01 Last Admin: 11/10/16 13:03 Dose: 200 mg Polyethylene Glycol (Miralax) 17 gm PO DAILY [facility] Last Admin: 11/10/16 10:07 Dose: 17 gm Tramadol HCl (Ultram) 50 mg PO TID [facility] Last Admin: 11/10/16 14:25 Dose: Not Given Vitamin B Complex/Vitamin C (Berocca) 1 tab PO DAILY [facility] Last Admin: 11/10/16 09:22 Dose: 1 tab - Labs Labs: 11/10/16 10:42 11/10/16 10:42 PT 12.5 SECONDS (9.7-12.2) H 11/08/16 03:00 INR 1.1 11/08/16 03:00 APTT 29 SECONDS (21-34) 11/08/16 03:00 Assessment and Plan - Assessment and Plan (Free Text) Assessment: A/P 51 year old female with history of Hypertension, Hyperlipidemia, Diabetes, and Hyperthyroidism admitted with dysuria and palpitations. troponin x 3 Echo normal left ventricular contractility, no pericardial disease and no aortic stenosis. Negative blood culture negative enzymes for NV. urine culture- negative CT - negative ( see full report for details ) seen by GI today - cleared fro discharge home today and f/u out pt for further work up D/W Dr. Cortez, stable for discharge home an df/u with PMD in 1 week Discharge plan discussed with patient who understands and agrees with plan Pt instructed to returns to ED if symptoms returns
--- NOTE | 2016-11-10 16:53 | CP.PCM.PN ---
Subjective - Date & Time of Evaluation Date of Evaluation: 11/09/16 Time of Evaluation: 10:15 - Subjective Subjective: pt seen and evaluated at bedside, Gi and cardiology consulted, Echo normal left ventricular contractility, no pericardial disease and no aortic stenosis. Unlikely arrhythmia. Negative blood culture negative enzymes for CT. TSH is mildly decreased suggest hyperthyroidism, follow-up with GI workup Objective - Vital Signs/Intake and Output Vital Signs (last 24 hours): Temp Pulse Resp BP Pulse Ox 98.2 F 73 20 127/78 95 11/10/16 15:58 11/10/16 15:58 11/10/16 15:58 11/10/16 15:58 11/10/16 15:58 Intake and Output: 11/10/16 11/10/16 06:59 18:59 Intake Total 560 Balance 560 - Medications Medications: Current Medications Acetaminophen (Tylenol 325mg Tab) 650 mg PO Q6 PRN PRN Reason: Headache Last Admin: 11/09/16 18:44 Dose: 650 mg Alprazolam (Xanax) 0.25 mg PO TID PRN PRN Reason: Anxiety Stop: 11/16/16 19:44 Last Admin: 11/09/16 21:32 Dose: 0.25 mg Aspirin (Ecotrin) 81 mg PO HS [facility] Last Admin: 11/09/16 21:32 Dose: 81 mg Atenolol (Tenormin) 25 mg PO DAILY [facility] Last Admin: 11/10/16 10:07 Dose: 25 mg Docusate Sodium (Colace) 100 mg PO BID [facility] Last Admin: 11/10/16 09:19 Dose: 100 mg Gabapentin (Neurontin) 100 mg PO BID [facility] Last Admin: 11/10/16 09:19 Dose: 100 mg Glimepiride (Amaryl) 4 mg PO 2000 [facility] Last Admin: 11/09/16 22:57 Dose: 4 mg Ceftriaxone Sodium 1 gm/ (Sodium Chloride) 100 mls @ 100 mls/hr IVPB DAILY@ 1500 [facility] Last Admin: 11/10/16 14:18 Dose: 100 mls/hr Lisinopril (Zestril) 10 mg PO DAILY [facility] Last Admin: 11/10/16 11:00 Dose: 10 mg Metformin HCl (Glucophage) 1,000 mg PO BIDBS [facility] Last Admin: 11/10/16 08:15 Dose: Not Given Methimazole (Tapazole) 5 mg PO DAILY [facility] Last Admin: 11/10/16 09:19 Dose: 5 mg Ondansetron HCl (Zofran Odt) 8 mg PO TID PRN PRN Reason: Nausea/Vomiting Ondansetron HCl (Zofran Inj) 4 mg IVP Q6 PRN PRN Reason: Nausea/Vomiting Last Admin: 11/09/16 17:57 Dose: 4 mg Pantoprazole Sodium (Protonix Ec Tab) 40 mg PO ACB [facility] Last Admin: 11/10/16 06:30 Dose: 40 mg Phenazopyridine HCl (Pyridium) 200 mg PO TIDPC [facility] Stop: 11/10/16 18:01 Last Admin: 11/10/16 13:03 Dose: 200 mg Polyethylene Glycol (Miralax) 17 gm PO DAILY [facility] Last Admin: 11/10/16 10:07 Dose: 17 gm Tramadol HCl (Ultram) 50 mg PO TID [facility] Last Admin: 11/10/16 14:25 Dose: Not Given Vitamin B Complex/Vitamin C (Berocca) 1 tab PO DAILY [facility] Last Admin: 11/10/16 09:22 Dose: 1 tab - Labs Labs: 11/10/16 10:42 11/10/16 10:42 PT 12.5 SECONDS (9.7-12.2) H 11/08/16 03:00 INR 1.1 11/08/16 03:00 APTT 29 SECONDS (21-34) 11/08/16 03:00 - Constitutional Appears: No Acute Distress - Head Exam Head Exam: ATRAUMATIC, NORMAL INSPECTION, NORMOCEPHALIC - Eye Exam Eye Exam: EOMI, Normal appearance, PERRL Pupil Exam: NORMAL ACCOMODATION, PERRL - Respiratory Exam Respiratory Exam: Decreased Breath Sounds, Rhonchi - Cardiovascular Exam Cardiovascular Exam: REGULAR RHYTHM, +S1, +S2. absent: Murmur - GI/Abdominal Exam GI & Abdominal Exam: Soft, Normal Bowel Sounds. absent: Tenderness Assessment and Plan (1) Abdominal pain Status: Resolved (2) Chest pain Status: Acute (3) Palpitation Status: Acute (4) Enteritis Status: Acute
--- NOTE | 2016-11-10 16:55 | CP.PCM.PN ---
Subjective - Date & Time of Evaluation Date of Evaluation: 11/10/16 Time of Evaluation: 10:16 - Subjective Subjective: pt seen & examined, epigastric pain resolved, She has mild nausea, but is tolerating diet. CT yesterday without any acute pathology. We are awaiting her prior endoscopy records, but would continue supportive care, PPI therapy, antiemetic as needed. Continue antibiotics Objective - Vital Signs/Intake and Output Vital Signs (last 24 hours): Temp Pulse Resp BP Pulse Ox 98.2 F 73 20 127/78 95 11/10/16 15:58 11/10/16 15:58 11/10/16 15:58 11/10/16 15:58 11/10/16 15:58 Intake and Output: 11/10/16 11/10/16 06:59 18:59 Intake Total 560 Balance 560 - Medications Medications: Current Medications Acetaminophen (Tylenol 325mg Tab) 650 mg PO Q6 PRN PRN Reason: Headache Last Admin: 11/09/16 18:44 Dose: 650 mg Alprazolam (Xanax) 0.25 mg PO TID PRN PRN Reason: Anxiety Stop: 11/16/16 19:44 Last Admin: 11/09/16 21:32 Dose: 0.25 mg Aspirin (Ecotrin) 81 mg PO HS [facility] Last Admin: 11/09/16 21:32 Dose: 81 mg Atenolol (Tenormin) 25 mg PO DAILY [facility] Last Admin: 11/10/16 10:07 Dose: 25 mg Docusate Sodium (Colace) 100 mg PO BID [facility] Last Admin: 11/10/16 09:19 Dose: 100 mg Gabapentin (Neurontin) 100 mg PO BID [facility] Last Admin: 11/10/16 09:19 Dose: 100 mg Glimepiride (Amaryl) 4 mg PO 1999 [facility] Last Admin: 11/09/16 22:57 Dose: 4 mg Ceftriaxone Sodium 1 gm/ (Sodium Chloride) 100 mls @ 100 mls/hr IVPB DAILY@ 1500 [facility] Last Admin: 11/10/16 14:18 Dose: 100 mls/hr Lisinopril (Zestril) 10 mg PO DAILY [facility] Last Admin: 11/10/16 11:00 Dose: 10 mg Metformin HCl (Glucophage) 1,000 mg PO BIDBS [facility] Last Admin: 11/10/16 08:15 Dose: Not Given Methimazole (Tapazole) 5 mg PO DAILY [facility] Last Admin: 11/10/16 09:19 Dose: 5 mg Ondansetron HCl (Zofran Odt) 8 mg PO TID PRN PRN Reason: Nausea/Vomiting Ondansetron HCl (Zofran Inj) 4 mg IVP Q6 PRN PRN Reason: Nausea/Vomiting Last Admin: 11/09/16 17:57 Dose: 4 mg Pantoprazole Sodium (Protonix Ec Tab) 40 mg PO ACB [facility] Last Admin: 11/10/16 06:30 Dose: 40 mg Phenazopyridine HCl (Pyridium) 200 mg PO TIDPC [facility] Stop: 11/10/16 18:01 Last Admin: 11/10/16 13:03 Dose: 200 mg Polyethylene Glycol (Miralax) 17 gm PO DAILY [facility] Last Admin: 11/10/16 10:07 Dose: 17 gm Tramadol HCl (Ultram) 50 mg PO TID [facility] Last Admin: 11/10/16 14:25 Dose: Not Given Vitamin B Complex/Vitamin C (Berocca) 1 tab PO DAILY [facility] Last Admin: 11/10/16 09:22 Dose: 1 tab - Labs Labs: 11/10/16 10:42 11/10/16 10:42 PT 12.5 SECONDS (9.7-12.2) H 11/08/16 03:00 INR 1.1 11/08/16 03:00 APTT 29 SECONDS (21-34) 11/08/16 03:00 - Constitutional Appears: No Acute Distress - Head Exam Head Exam: ATRAUMATIC, NORMAL INSPECTION, NORMOCEPHALIC - Eye Exam Eye Exam: EOMI, Normal appearance, PERRL Pupil Exam: NORMAL ACCOMODATION, PERRL - Respiratory Exam Respiratory Exam: Clear to Ausculation Bilateral, NORMAL BREATHING PATTERN - Cardiovascular Exam Cardiovascular Exam: REGULAR RHYTHM, +S1, +S2. absent: Murmur - GI/Abdominal Exam GI & Abdominal Exam: Soft, Normal Bowel Sounds. absent: Tenderness Assessment and Plan (1) Abdominal pain Status: Resolved (2) Chest pain Status: Acute (3) Palpitation Status: Acute (4) Enteritis Status: Acute
== END 2016-11-10 17:20 | disposition home or self-care (01) ==
LOC: C.ER 02:08 → C.9E 05:23 → C.6T 16:17
PROVIDERS: ADMIT Internal Medicine; ATTEND Internal Medicine
DX: R00.2 Palpitations (principal); E03.9 Hypothyroidism, unspecified; E11.9 Type 2 diabetes mellitus without complications; E78.2 Mixed hyperlipidemia; I10 Essential (primary) hypertension; K59.00 Constipation, unspecified; R30.0 Dysuria
CPT/HCPCS: 36415; 71010; 74176; 76770; 80053; 80074; 81001; 82948; 83036; 84443; 84484; 85025; 85610; 85730; 87040; 87086; 93005; 93306; 96360; 96365; 96372; 99285; G0378; J0696; J1650; J2405; J7040; Q9966

== ENCOUNTER 2018-06-26 17:28 | Emergency (ER) | payer MEDICAID ==
[2018-06-26 17:28] VITALS: BMI 28.4
[2018-06-26 17:58] VITALS: RESP 16
--- NOTE | 2018-06-26 19:54 | C.PDOC ---
History Of Present Illness 53 year old female presents to the ED c/o diffuse urticarial rash. Patient reports she took 50 mg Benadryl today at 14:00 with no relief. Patient speaking in complete sentences, tolerate PO. Patient denies fever, chills, nausea, vomit, wheezing, SOB, lip swelling, tongue swelling, CP. Time Seen by Provider: 06/26/18 19:53 Chief Complaint (Nursing): Abdominal Pain History Per: Patient History/Exam Limitations: no limitations Onset/Duration Of Symptoms: Hrs Current Symptoms Are (Timing): Still Present Location Of Pain/Discomfort: Diffuse Quality Of Discomfort: "Pain" Associated Symptoms: Other (Rash). denies: Nausea, Vomiting, Diarrhea, Urinary Symptoms Recent travel outside of the [place]: No Additional History Per: Patient Abnormal Vaginal Bleeding: No Past Medical History Reviewed: Historical Data, Nursing Documentation, Vital Signs Vital Signs: Last Vital Signs Temp 97.6 F 06/26/18 17:54 Pulse 96 H 06/26/18 17:54 Resp 16 06/26/18 17:54 BP 170/95 H 06/26/18 17:54 Pulse Ox 98 06/26/18 17:54 - Medical History PMH: Gastrointestinal Ulcer, HTN, Hypercholesterolemia, Hyperlipidemia, Hyperthyroidism, Hypothyroidism Denies: Chronic Kidney Disease Surgical History: Endoscopy - [facility] Procedures INFLUENZA VACCINATION (09/07/14) VACCINATION NEC (09/07/14) Family History: States: Unknown Family Hx - Social History Hx Tobacco Use: No Hx Alcohol Use: No Hx Substance Use: No - Immunization History Hx Tetanus Toxoid Vaccination: No Hx Influenza Vaccination: No Hx Pneumococcal Vaccination: No Review Of Systems Constitutional: Negative for: Fever, Chills ENT: Negative for: Mouth Swelling, Throat Swelling Cardiovascular: Negative for: Chest Pain Respiratory: Negative for: Shortness of Breath, Wheezing Gastrointestinal: Negative for: Nausea, Vomiting, Abdominal Pain, Diarrhea Skin: Positive for: Rash Neurological: Negative for: Weakness, Numbness, Headache Physical Exam - Physical Exam Appears: Non-toxic, No Acute Distress Skin: Warm, Dry, Rash (diffuse urticarial rash) Head: Normacephalic Eye(s): bilateral: Normal Inspection Oral Mucosa: Moist Tongue: No Swelling Lips: No Swelling Throat: No Erythema, No Exudate, No Drooling Neck: Supple Chest: Symmetrical Cardiovascular: Rhythm Regular Respiratory: No Rales, No Rhonchi, No Wheezing Gastrointestinal/Abdominal: Soft, No Tenderness, No Guarding, No Rebound Extremity: Bilateral: Atraumatic, Normal Color And Temperature, Normal ROM Neurological/Psych: Oriented x3, Normal Speech, Normal Cognition Gait: Steady ED Course And Treatment O2 Sat by Pulse Oximetry: 98 (ON RA) Pulse Ox Interpretation: Normal Progress Note: Plan: - Benadryl 50 mg PO. - Pepcid 20 mg IVP. - Solumedrol 125 mg IVP. - IV fluids. - Zofran 4 mg IVP Reevaluation Time: 22:42 Reassessment Condition: Improved Disposition Counseled Patient/Family Regarding: Studies Performed, Diagnosis, Need For Followup, Rx Given - Disposition Referrals: Tr Kirk MD [Medical Doctor] - Disposition: HOME/ ROUTINE Disposition Time: 19:54 Condition: FAIR Additional Instructions: Please also use benadryl, pepcid and claritin Prescriptions: Epinephrine [Epipen] 0.3 mg IJ ONCE PRN #2 auto.injct PRN Reason: Anaphylaxis predniSONE [Prednisone] 20 mg PO DAILY #5 tab Instructions: Nhung (DC) Forms: [employer] (Bengali) - Clinical Impression Clinical Impression: Allergic urticaria - Scribe Statement The provider has reviewed the documentation as recorded by the Scribe Antonio Donnelly All medical record entries made by the Scribe were at my direction and personally dictated by me. I have reviewed the chart and agree that the record accurately reflects my personal performance of the history, physical exam, medical decision making, and the department course for this patient. I have also personally directed, reviewed, and agree with the discharge instructions and disposition.
[2018-06-26] MEDS ORDERED: Sodium Chloride 0.9% 1,000 ML IV ONE (20:05)
[2018-06-26] MEDS ORDERED: Sodium Chloride 0.9% 1,000 ML ONE (20:15)
[2018-06-26 23:02] VITALS: BP 141/84; PULSE 90; TEMP 97.7; O2SAT 97
== END 2018-06-26 23:10 | disposition home or self-care (01) ==
LOC: C.ER 17:28
DX: L50.0 Allergic urticaria (principal)
CPT/HCPCS: 96374; 96375; 99285; J2405; J2930; J7030

== ENCOUNTER 2018-08-12 09:03 | Outpatient (CLI) | payer MEDICAID | END 2018-08-12 09:04 | disposition home or self-care (01) | LOC: C.VASC 09:03 | DX: I10 Essential (primary) hypertension (principal); E78.00 Pure hypercholesterolemia, unspecified; M79.602 Pain in left arm ==

== ENCOUNTER 2018-08-17 00:59 | Emergency (ER) | payer MEDICAID ==
[2018-08-17 00:59] VITALS: BMI 28.4
[2018-08-17] MEDS ORDERED: Sodium Chloride 0.9% 1,000 ML IV ONE (01:06)
[2018-08-17] MEDS ORDERED: DiphenhydrAMINE 50 mg/ml Inj IVP STA ×2 (01:06→03:29)
--- NOTE | 2018-08-17 01:06 | C.PDOC ---
History Of Present Illness Patient ate mixed nuts including pistachios and developed a diffuse urticarial rash. Patient is tolerating PO and speaking in complete sentences. Denies fever, chills, or SOB. Time Seen by Provider: 08/17/18 01:06 Chief Complaint (Nursing): Allergic Reaction History Per: Patient History/Exam Limitations: no limitations Onset/Duration Of Symptoms: Hrs Current Symptoms Are (Timing): Still Present Context: Food Possible Cause: Food Associated Symptoms: Skin Rash Home/EMS Treatment: None Severity: Moderate Pain Scale Rating Of: 4 Recent travel outside of the [place]: No Past Medical History Reviewed: Historical Data, Nursing Documentation, Vital Signs - Medical History PMH: Gastrointestinal Ulcer, HTN, Hypercholesterolemia, Hyperlipidemia, Hyperthyroidism, Hypothyroidism Denies: Chronic Kidney Disease Surgical History: Endoscopy - [facility] Procedures INFLUENZA VACCINATION (09/07/14) VACCINATION NEC (09/07/14) Family History: States: No Known Family Hx - Social History Hx Tobacco Use: No Hx Alcohol Use: No Hx Substance Use: No - Immunization History Hx Tetanus Toxoid Vaccination: No Hx Influenza Vaccination: No Hx Pneumococcal Vaccination: No Review Of Systems Constitutional: Negative for: Fever, Chills Cardiovascular: Negative for: Chest Pain, Palpitations Respiratory: Negative for: Cough, Shortness of Breath Gastrointestinal: Negative for: Nausea, Vomiting Skin: Positive for: Rash Neurological: Negative for: Weakness, Numbness Psych: Negative for: Anxiety Physical Exam - Physical Exam Appears: Non-toxic Skin: Rash (Diffuse urticarial) Head: Normacephalic, No Swelling (Facial) Eye(s): bilateral: Normal Inspection Oral Mucosa: Moist Tongue: No Swelling Lips: No Swelling Throat: No Erythema, No Drooling Neck: Trachea Midline, Supple Chest: Symmetrical, No Tenderness Cardiovascular: Rhythm Regular Respiratory: No Accessory Muscle Use, No Rales, No Rhonchi, No Stridor, No Wheezing Gastrointestinal/Abdominal: Soft, No Tenderness Back: Normal Inspection Extremity: Normal ROM Neurological/Psych: Oriented x3 Gait: Steady ED Course And Treatment O2 Sat by Pulse Oximetry: 99 Pulse Ox Interpretation: Normal Progress Note: IV fluids, benadryl, pepcid, and solumedrol administered. rash resolved. some itching remains. Speaking in complete sentences Reevaluation Time: 03:02 Reassessment Condition: Improved Medical Decision Making Medical Decision Making: Upon provider reevaluation patient is feeling better, is medically stable, and requires no further treatment in the ED at this time. Patient will be discharged home with Rx for prednisone, epipen., . Counseling was provided and all quest ions were answered regarding diagnosis and need for follow up with dr kirk. There is agreement to discharge plan. Return if symptoms persist or worsen. Disposition Counseled Patient/Family Regarding: Studies Performed, Diagnosis, Need For Followup, Rx Given - Disposition Referrals: Tr Kirk MD [Medical Doctor] - Disposition: HOME/ ROUTINE Disposition Time: 01:06 Condition: FAIR Additional Instructions: Please return if symptoms recur. ALso use benadryl, pepcid, and claritin Prescriptions: Epinephrine [Epipen] 0.3 mg IJ ONCE PRN #2 auto.injct PRN Reason: Anaphylaxis Prednisone [Deltasone] 20 mg PO DAILY #5 tablet Instructions: Skin Rash (DC), Allergy to Nuts or Seeds Forms: [employer] (Welsh) - Clinical Impression Clinical Impression: Allergic reaction - Scribe Statement The provider has reviewed the documentation as recorded by the Scribcj Morrell All medical record entries made by the Scribe were at my direction and personally dictated by me. I have reviewed the chart and agree that the record accurately reflects my personal performance of the history, physical exam, medical decision making, and the department course for this patient. I have also personally directed, reviewed, and agree with the discharge instructions and disposition.
[2018-08-17] MEDS ORDERED: DiphenhydrAMINE 50 mg/ml Inj ONE ×2 (01:17→03:34)
[2018-08-17] MEDS ORDERED: Sodium Chloride 0.9% 1,000 ML ONE (01:17)
[2018-08-17 04:03] VITALS: BP 137/87; PULSE 98; RESP 18; TEMP 97.8; O2SAT 97
== END 2018-08-17 04:03 | disposition home or self-care (01) ==
LOC: C.ER 00:59
DX: L50.0 Allergic urticaria (principal)
CPT/HCPCS: 96374; 96375; 96376; 99285; J1200; J2930; J7030